=== PATIENT | male | born 1990 | race Asian ===

== ENCOUNTER 2024-05-25 14:26 | Inpatient (IN) | payer OTHER ==
[~2024-05-25] VITALS: Ht 152.4 cm; Wt 102.4 kg
[2024-05-25] MEDS ORDERED: NORVASC 10MG10 MG PO (16:58)
[2024-05-25] MEDS ORDERED: ZEBETA 5MG5 MG PO (16:59)
[2024-05-25] MEDS ORDERED: ALDACTONE 25MG25 M1 PO (16:59)
[2024-05-25] MEDS ORDERED: ENTRESTO 97 MG1 EACH PO (16:59)
[2024-05-25] MEDS ORDERED: Ondansetron 4 MG/2 ML VIAL IV PRN (17:00)
[2024-05-25] MEDS ORDERED: PLAVIX 75MG TAB75 MG PO (17:00)
[2024-05-25] MEDS ORDERED: Acetaminophen 500 MG TAB PO PRN (17:00)
[2024-05-25] MEDS ORDERED: niCARdipine 200 ML IV SCH (17:00)
[2024-05-25] MEDS ORDERED: JARDIANCE10 PO (17:01)
[2024-05-25] MEDS ORDERED: CRESTOR40 MG PO (17:01)
[2024-05-25] MEDS ORDERED: Bisoprolol 5 MG TAB PO ONE (17:45)
--- NOTE | 2024-05-25 19:15 | NUR ---
Received report from DESIREE Sanchez.
--- NOTE | 2024-05-25 19:45 | NUR ---
Patient resting quietly in bed watching TV. Continues to receive cardene drip, see IV drip titrations. Vitals within normal limits. Patient denies pain or discomfort.
[2024-05-25 20:00] VITALS: BP 156/97; PULSE 97; TEMP 98.3
[2024-05-25] MEDS ORDERED: Nebivolol 10 MG **** subs to Bisoprolol 10 MG PO SCH (20:15)
--- NOTE | 2024-05-25 20:15 | NUR ---
Dr. Cox at bedside.
[2024-05-25] MEDS ORDERED: Atorvastatin 80 MG TAB PO SCH (21:00)
[2024-05-25] MEDS ORDERED: Rosuvastatin 40 MG **** subs to Atorvastatin 80 MG PO SCH (21:00)
[2024-05-25 23:00] VITALS: BP 127/83
[2024-05-26] VITALS (12 sets, daily range): BP systolic 129–187; BP diastolic 86–136; PULSE 62–73; TEMP 97.8–98.7
[2024-05-26 05:49] LABS: BASO # 0.1 K/mm3 (0.0-0.2); BASO % 0.6 % (0.0-2.0); EOS # 0.2 K/mm3 (0.0-0.7); EOS % 2.5 % (0.0-4.0); GRAN # 6.5 K/mm3 (1.4-6.5); GRAN % 68.2 % (42.2-75.2); MEAN CELL VOLUME 88 fl (80.0-100.0); MEAN CORPUSCULAR HGB CONC 34 g/dl (33.0-37.0); MONO # 0.7 K/mm3 (0.1-0.6); MONO % 7.4 % (1.7-9.3); PLATELET COUNT 238 K/mm3 (130-400); RED BLOOD COUNT 6.11 M/mm3 (4.20-5.60); REDCELL DISTRIBUTION WIDTH-CV 13.2 % (11.5-14.5)
[2024-05-26 05:53] LABS: HEMATOCRIT 53.7 % (42.0-52.0); HEMOGLOBIN 18.3 g/dl (13.5-18.0); MEAN CORPUSCULAR HEMOGLOBIN 30 pg (27-31)
[2024-05-26 06:10] LABS: CALCIUM 9.9 mg/dL (8.4-10.2); CREATININE, serum 1.05 mg/dL (0.72-1.25); MAGNESIUM 2.2 mg/dL (1.6-2.6); POTASSIUM 3.7 mEq/L (3.5-4.5)
[2024-05-26 06:16] LABS: TROPONIN-I 0.011 ng/mL (0.00-0.033)
--- NOTE | 2024-05-26 08:02 | NUR ---
Pt resting comfortably in bed. VSS. IV intact with no redness or inflammation. Pt voiding with urinal with ease. AM medications administered per EMAR orders. No difficulty taking medications with a sip of water. Pt does not have any questions or complaints at this time.
[2024-05-26] MEDS ORDERED: Clopidogrel 75 MG TAB PO SCH (09:00)
[2024-05-26] MEDS ORDERED: Spironolactone 25 MG TAB PO SCH (09:00)
[2024-05-26] MEDS ORDERED: Empagliflozin 10 MG TAB PO SCH (09:00)
[2024-05-26] MEDS ORDERED: Bisoprolol 5 MG TAB PO SCH (09:00)
--- NOTE | 2024-05-26 09:58 | NUR ---
Initial visit; Patient thanked Mine Expert for visiting him and offering Blessings.
[2024-05-26] MEDS ORDERED: Bisoprolol 5 MG TAB PO ONE (10:15)
[2024-05-26] MEDS ORDERED: amLODIPine 10 MG TAB PO SCH (10:27)
--- NOTE | 2024-05-26 10:44 | NUR ---
housekeeper/custodian/laundry worker met with patient to discuss discharge planning. Patient lives in [facility]. Next of kin would be his parents, his mother, Karin Wright P# [phone], whom lives in [place]. Patient is in the and reports his emergency contacts would be [facility], P# [phone], CPT Mistr P# [phone], LT Gray P# [phone], [facility] Jagjit P# [phone]. They would be able to assist with contacting next of kin if needed. PCP is [facility], Pharmacy is [facility]. No DPOA-HC not interested in completing one. DME is CPAP. Patient reports to be independent with ADLS and transportation to appointments. Patientexpressed he would like to return home at time of discharge. KAYKAY attended interdisciplinary clinical rounding with Dr. Alegria. Patient is able to move to the medical floor today. KAYKAY notified KAYKAY Rodas whom is the social sciences department chair for the medical floor today. Discharge plan: Home
--- NOTE | 2024-05-26 12:44 | NUR ---
Patient transfered via wheelchair to medical floor. Alert and oriented and in no distress upon transfer.
--- NOTE | 2024-05-26 12:55 | NUR ---
PATIENT ARRIVED TO UNIT AWAKE AND ALERT, ASSIGNED RN NOTICED PATIENT BP IN ICU WAS 172/132 AROUND NOON. PER REPRORT PHYSICIAN NOT NOTIFIED AND NO TREATMENT GIVEN. ON ARRIVAL TO UNIT PATIENT BP OF 169/132. DR GAUTHIER NOTIFIED, TORB FOR HYDRALAZINE 10MG PO Q4H PRN FOR SYSTOLIC BP >180 OR DIALSTOLIC BP >100, RN TO GIVE A DOSE NOW.
[2024-05-26] MEDS ORDERED: hydrALAZINE 10 MG TAB PO PRN (13:00)
--- NOTE | 2024-05-26 13:00 | NUR ---
Pt arrived to medical floor from ICU by wheelchair. Report received from DESIREE Hutchinson in ICU. Shift assessment completed. Pt A&O x4. VSS with an elevated BP of 169/132. DESIREE Cuevas notified by phone and obtained new orders. Pt denies pain rating 0/10. Oriented pt to room, call light, and bathroom. Pt has no request at this time. [address] and will end at 2029 per [employer]. Call light within reach.
--- NOTE | 2024-05-26 21:10 | NUR ---
PATIENT RESTING IN BED WITH TV ON WITH NO FAMILY PRESENT WITH NO ACUTE DISTRESS NOTED. PATIENT ON ROOM AIR. INT TO RIGHT HAND INTACT WITH NO COMPLICATIONS NOTED. TELEMETRY INTACT. ASSESSMENT AND MEDICATION ADMINISTRATION COMPLETED AT THIS TIME. PATIENT TOLERATED WELL. PATIENT TOOK SHOWER PRIOR TO ASSESSMENT AND MEDICATION ADMINISTRATION. ICE GIVEN. ALL NEEDS MET. BED IN LOW POSITION WITH WHEELS LOCKED WITH RAILS UP X3 AND CALL LIGHT WITHIN REACH.
[2024-05-27 00:05] VITALS: BP_SYST 137
[2024-05-27 03:27] VITALS: BP 134/92; PULSE 69; TEMP 97.6
[2024-05-27 04:05] VITALS: BP_SYST 134
--- NOTE | 2024-05-27 07:14 | NUR ---
Bedside report received from DESIREE Soliman. Pt resting in bed with no complaints. Call light within reach.
[2024-05-27 07:22] VITALS: BP 162/114; PULSE 73; TEMP 97.6
--- NOTE | 2024-05-27 08:08 | NUR ---
Pt awake in bed watching TV in pleasant mood. Shift assessment completed. Pt is A&O x4. Lung sounds clear to auscultation. BS active x4. VSS with elevated BP and scheduled medications administered as ordered for BP. Pt denies pain rating 0/10. Pt ambulates independently in room with no complications. Pt has no request at this time. Call light within reach.
[2024-05-27 08:10] VITALS: BP_SYST 162
[2024-05-27] MEDS ORDERED: Bisoprolol 5 MG TAB PO SCH (09:00)
[2024-05-27] MEDS ORDERED: Cholecalciferol (Vit D3) 1000 Units TAB PO SCH (09:12)
[2024-05-27] MEDS ORDERED: cloNIDine 0.1 MG TAB PO SCH (09:14)
[2024-05-27] MEDS ORDERED: 1/2 NS 1,000 ML IV SCH (09:30)
[2024-05-27] MEDS ORDERED: diphenhydrAMINE 50 MG CAP PO ONE (10:30)
[2024-05-27] MEDS ORDERED: predniSONE 20 MG TAB PO ONE (10:30)
--- NOTE | 2024-05-27 10:48 | NUR ---
This nurse went to pt room to verify any allergies before pt went to CT. Pt informed this nurse that while stationed in [place] he had previously had IV contrast before and he had a itching reaction. This nurse notified CT Michaela about pt reaction and Michaela from radiology informed this nurse that pt would need [address] This nurse then notified Dr. Alegria by phone of converstation with radiology and pt. Dr. Alegria gave verbal order for Benadryl 50 mg once now PO and Prednisone 40 mg once now PO and to continue with CT. This nurse read back order and Dr. Alegria confirmed. Michaela in radiology informed of Dr. Sands orders.
[2024-05-27] MEDS ORDERED: Iohexol 300 - 100 ML VIAL IV ONE (11:20)
[2024-05-27] MEDS ORDERED: NS 100 ML IV ONE (11:22)
[2024-05-27 11:40] VITALS: BP 168/126; PULSE 72; TEMP 97.9
[2024-05-27] MEDS ORDERED: ZEBETA10 MG PO (12:52)
[2024-05-27] MEDS ORDERED: NITROSTAT0.4 MG/TAB SL (12:52)
[2024-05-27] MEDS ORDERED: ENTRESTO 97 MG1 EACH PO (12:53)
[2024-05-27] MEDS ORDERED: ALDACTONE 25MG25 M1 PO (12:53)
[2024-05-27] MEDS ORDERED: NORVASC 10MG10 MG PO (12:53)
[2024-05-27] MEDS ORDERED: MASON NATURAL2000 IU PO (12:53)
[2024-05-27] MEDS ORDERED: hydrALAZINE 25 MG TAB PO ONE ×2 (13:00→13:15)
[2024-05-27] MEDS ORDERED: APRESOLINE 25MG25 MG PO (13:00)
--- NOTE | 2024-05-27 13:49 | NUR ---
Discharge paperwork provided to pt and pt verbalized understanding. Pt sent home with 24 - hr urine collection supplies and instructions. Pt also sent with PO Hydralizine 25 mg three tabs total per pharmacist Stefano. INT to RH discontinued with tip intact, pt tolerated well with no complaints. Pt is leaving facility with friend and going home.
[2024-06-02 14:10] LABS: RENIN,PLASMA 0.191 ng/mL/hr (())
== END 2024-05-27 13:50 | disposition home or self-care (01) | DRG 305 ==
LOC: IMCU 14:26 → ICU 16:40 → MEDICAL 16:40 → ICU 16:40 → MEDICAL 05-26 12:47
PROVIDERS: Internal Medicine Interventional Cardiology; ADMIT Internal Medicine
DX: I16.0 Hypertensive urgency (principal); I50.22 Chronic systolic (congestive) heart failure; E78.5 Hyperlipidemia, unspecified; I25.10 Atherosclerotic heart disease of native coronary artery without angina pectoris; R79.89 Other specified abnormal findings of blood chemistry; I34.0 Nonrheumatic mitral (valve) insufficiency; R94.31 Abnormal electrocardiogram [ECG] [EKG]; I11.0 Hypertensive heart disease with heart failure; Z79.899 Other long term (current) drug therapy; Z86.74 Personal history of sudden cardiac arrest; Z95.5 Presence of coronary angioplasty implant and graft; Z79.02 Long term (current) use of antithrombotics/antiplatelets
CPT/HCPCS: A9270; J1650; J2404; J7512; Q9967